=== PATIENT | male | born 1970 | race Caucasian/White ===

== ENCOUNTER 2017-06-27 15:53 | Observation (INO) | payer BC, OTHER ==
--- NOTE | 2017-06-27 16:29 | XR ---
EXAMINATION TYPE: XR ankle complete LT DATE OF EXAM: 06/27/2017 CLINICAL HISTORY: Left ankle pain after fall TECHNIQUE: Frontal, lateral and oblique images of the left ankle are obtained. COMPARISON: None. FINDINGS: There is an obliquely oriented mildly displaced fracture of the distal fibula with the dist al fracture fragment displaced approximately 5 mm laterally and minimally posteriorly. There is overl taras soft tissue swelling. No additional fracture is identified. Soft tissue swelling is also seen me dial lead. There is subluxation without leonarda dislocation of the ankle joint with medial joint space widening of 1.5 cm and inferred soft tissue injury. Moderate Achilles enthesophyte is also incidental ly noted. IMPRESSION: 1. Obliquely oriented distal fibular fracture, minimally displaced posterior laterally. 2. Medial ankle subluxation of 1.5 cm with overlying soft tissue swelling and inferred ligamentous in jury.
[2017-06-27] MEDS ORDERED: MIDAZOLAM 2 MG/2 ML VIAL IV ONE (16:33)
[2017-06-27] MEDS ORDERED: fentaNYL (PF) 50 MCG/ML 2 ML AMP IVP ONE (16:45)
--- NOTE | 2017-06-27 17:36 | XR ---
EXAMINATION TYPE: XR ankle complete LT DATE OF EXAM: 06/27/2017 COMPARISON: Today HISTORY: Post reduction TECHNIQUE: 3 views. FINDINGS: There is oblique fracture of the distal fibula with up to 5 mm displacement of the fragments. There i s widening of the ankle mortise. There is lateral subluxation of the talus. There is no dislocation. Conclusion: Displaced distal fibular fracture without significant change in position compared to exam one hour ago. Persistent lateral talus subluxation.
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
[2017-06-27] MEDS ORDERED: ONDANSETRON 4 MG/2 ML VIAL IVP PRN (18:43)
[2017-06-27] MEDS ORDERED: NALOXONE 0.4 MG/ML 1 ML VIAL IV PRN (18:43)
[2017-06-27] MEDS ORDERED: MORPHINE SULFATE 2 MG/ML SYRINGE IV PRN (18:43)
[2017-06-27 19:40] LABS: Basophils # (A) 0.1 k/uL (0-0.2); Basophils % (A) 0 %; Eosinophils # (A) 0.4 k/uL (0-0.7); Eosinophils % (A) 2 %; HCT 46.9 % (39.0-53.0); HGB 15.4 gm/dL (13.0-17.5); Lymphocytes # (A) 1.1 k/uL (1.0-4.8); Lymphocytes % (A) 6 %; MCH 29.7 pg (25.0-35.0); MCHC 32.9 g/dL (31.0-37.0); MCV 90.2 fL (80.0-100.0); Mean Platelet Volume 8.9; Monocytes # (A) 0.9 k/uL (0-1.0); Monocytes % (A) 5 %; Neutrophils # (A) 16.5 k/uL (1.3-7.7); Neutrophils % (A) 86 %; RDW 14.5 % (11.5-15.5)
[2017-06-27 19:50] LABS: Platelet Count 92 k/uL (150-450)
[2017-06-27 19:51] LABS: Anion Gap 8 mmol/L; Blood Urea Nitrogen 15 mg/dL (9-20); Calcium 8.8 mg/dL (8.4-10.2); Carbon Dioxide 29 mmol/L (22-30); Chloride 101 mmol/L (98-107); Glucose 118 mg/dL (74-99); Potassium 4.2 mmol/L (3.5-5.1); Sodium 138 mmol/L (137-145)
[2017-06-27] MEDS: HYDROmorphone 0.5 MG/0.5 ML SYRINGE IVP PRN (22:47)
[2017-06-28 06:48] LABS: Basophils # (A) 0.1 k/uL (0-0.2); Basophils % (A) 1 %; Eosinophils # (A) 0.5 k/uL (0-0.7); Eosinophils % (A) 4 %; HCT 42.7 % (39.0-53.0); HGB 13.8 gm/dL (13.0-17.5); Lymphocytes # (A) 1.3 k/uL (1.0-4.8); Lymphocytes % (A) 11 %; MCH 29.9 pg (25.0-35.0); MCHC 32.2 g/dL (31.0-37.0); MCV 92.9 fL (80.0-100.0); Mean Platelet Volume 8.3; Monocytes # (A) 0.8 k/uL (0-1.0); Monocytes % (A) 7 %; Neutrophils # (A) 9.4 k/uL (1.3-7.7); Neutrophils % (A) 76 %; RDW 14.6 % (11.5-15.5); WBC 12.3 k/uL (3.8-10.6)
[2017-06-28 06:54] LABS: Anion Gap 9 mmol/L; Blood Urea Nitrogen 14 mg/dL (9-20); Calcium 8.6 mg/dL (8.4-10.2); Carbon Dioxide 29 mmol/L (22-30); Chloride 101 mmol/L (98-107); Glucose 113 mg/dL (74-99); Potassium 4.5 mmol/L (3.5-5.1); Sodium 139 mmol/L (137-145)
[2017-06-28 06:56] LABS: Platelet Count 70 k/uL (150-450)
[2017-06-28] MEDS: HYDROmorphone 0.5 MG/0.5 ML SYRINGE IVP PRN (07:38)
[2017-06-28] MEDS ORDERED: LACTATED RINGERS 1,000 ML IV ONE (09:51)
[2017-06-28] MEDS ORDERED: DEXAMETHASONE SOD PHOSPHATE 10 MG/ML 1 ML VIAL IV ONE (10:04)
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
[2017-06-28] MEDS ORDERED: MIDAZOLAM 2 MG/2 ML VIAL ONE (10:30)
[2017-06-28] MEDS ORDERED: fentaNYL (PF) 50 MCG/ML 2 ML AMP ONE (10:30)
[2017-06-28] MEDS ORDERED: PROPOFOL 10 MG/ML 20 ML VIAL IV ONE (10:30)
[2017-06-28] MEDS ORDERED: SODIUM CHLORIDE 0.9% 100 ML with ceFAZolin 2,000 MG IV ONE ×2 (10:45)
[2017-06-28] MEDS ORDERED: HYDROcodone/APAP 5-325MG 1 EACH TAB PO PRN (11:34)
[2017-06-28] MEDS ORDERED: HYDROmorphone 0.5 MG/0.5 ML SYRINGE IVP PRN (11:34)
[2017-06-28] MEDS ORDERED: HYDROmorphone 2 MG/ML 1 ML SYRINGE IVP PRN (11:34)
--- NOTE | 2017-06-28 11:39 | P.OP ---
Date of Procedure: 06/28/17 Preoperative Diagnosis: Displaced left ankle lateral malleolar fracture Postoperative Diagnosis: same Procedure(s) Performed: Open reduction and internal fixation left ankle lateral malleolus fracture Implants: Rayne 6-hole one third semitubular plate with 6 appropriate length screws Anesthesia: spinal Surgeon: Andreas Kirk [employer] Dispatcher #1: Alen Robins Estimated Blood Loss (ml): 25 Pathology: none sent Condition: stable Disposition: PACU Indications for Procedure: 46-year-old patient seen with a displaced left ankle lateral malleolar fracture. I recommended open reduction and internal fixation. I reviewed the procedure, risks, complications and recovery. Patient was agreeable and consent was obtained. Operative Findings: see description of procedure Description of Procedure: The patient was taken to the operative suite. The patient underwent a spinal anesthetic by the department of anesthesia. The patient received preoperative IV antibiotics. A well-padded tourniquet was placed proximal left lower extremity. The left lower extremity was now prepped and draped in the normal sterile orthopedic fashion. The tourniquet was insufflated to 350. I now made an incision over the lateral malleolus sharply through skin. Blunt dissection was taken down to the fracture site which was easily identified. I used a periosteal elevator to expose the lateral aspect of the lateral malleolus. I reduced the displaced fracture and secured it with a bone clamp. The C-arm was brought in confirming anatomic reduction and bahai of the mortise. I chose a 6-hole semitubular plate and contoured it appropriately. It was secured to the lateral malleolus. Appropriate drill holes were made through the plate and 6 screws were introduced having good bite and purchase. The bone clamp was removed. We had a good anatomic reduction of the fracture and good fixation. The C-arm was brought in confirming alignment and placement of our fixation. It also confirmed bahai of the mortise. Spot films were obtained to document this. The wound was irrigated. The subcutaneous soft tissues were approximated with 2-0 Vicryl. The skin was approximated with skin yvette. Sterile dressings were applied followed by loose web roll. The tourniquet was released with immediate capillary refill noted of the entire extremity. We now placed the extremity in a modified bulky Guzman splint with ankle in neutral position. The patient was awakened, transferred to a bed and recovery in stable condition. Malachi ROCHA assisted with the procedure.
--- NOTE | 2017-06-28 13:46 | XR ---
Limited left ankle HISTORY: Fracture 3 intraoperative views of the left ankle document the procedure
--- NOTE | 2017-06-28 13:50 | FL ---
Fluoroscopy HISTORY: Open reduction internal fixation left ankle 5 seconds fluoroscopy time supplied to the referring clinician. 3 intraoperative C-arm images docume nt the procedure. See dictated report from orthopedic surgery.
[2017-06-28] MEDS: HYDROcodone/APAP 5-325MG 1 EACH TAB PO PRN ×2 (16:17→21:16)
[2017-06-28 18:14] LABS: Basophils % (A) 0 %; Eosinophils # (A) 0.2 k/uL (0-0.7); Eosinophils % (A) 1 %; HCT 46.7 % (39.0-53.0); HGB 15.4 gm/dL (13.0-17.5); Lymphocytes # (A) 0.4 k/uL (1.0-4.8); Lymphocytes % (A) 3 %; MCH 29.7 pg (25.0-35.0); MCHC 32.9 g/dL (31.0-37.0); MCV 90.4 fL (80.0-100.0); Mean Platelet Volume 8.7; Monocytes # (A) 0.4 k/uL (0-1.0); Monocytes % (A) 3 %; Neutrophils # (A) 13.2 k/uL (1.3-7.7); Neutrophils % (A) 93 %; RBC 5.17 m/uL (4.30-5.90); WBC 14.3 k/uL (3.8-10.6)
[2017-06-28 18:15] LABS: Platelet Count 89 k/uL (150-450)
[2017-06-28] MEDS: ceFAZolin IN SWFI 2 GM/20 ML SYRINGE IVP SCH (18:29)
[2017-06-29] MEDS: ceFAZolin IN SWFI 2 GM/20 ML SYRINGE IVP SCH (00:16)
[2017-06-29] MEDS: HYDROcodone/APAP 5-325MG 1 EACH TAB PO PRN ×2 (04:35→11:18)
[2017-06-29 07:18] VITALS: BP 125/69; PULSE 74; RESP 16; TEMP 97.4
[2017-06-29] MEDS ORDERED: ENOXAPARIN 30 MG/0.3 ML SYRINGE SQ SCH (09:00)
--- NOTE | 2017-06-29 10:01 | P.PN ---
Subjective Progress Note Date: 06/29/17 Principal diagnosis: status post ORIF left distal fibular fracture patient is seen today resting in his hospital bed, he appears comfortable. His pain is controlled at this time. He is urinating with no difficulty. He denies any headaches, lightheadedness, chest pain or shortness of breath. Objective - Vital Signs Vital signs: Vital Signs Temp 97.4 F L 06/29/17 07:18 Pulse 74 06/29/17 07:18 Resp 16 06/29/17 07:18 BP 125/69 06/29/17 07:18 Pulse Ox 96 06/29/17 07:18 Intake & Output 06/28/17 06/29/17 06/29/17 18:59 06:59 18:59 Intake Total 700 240 Output Total 25 225 Balance 675 -225 240 Intake: IV 700 Oral 240 Output: Urine 225 Estimated Blood Loss 25 Other: Voiding Method Toilet Urinal # Voids 1 - Exam left lower extremity: Postop splint is in good position, clean and dry. He is able to wiggle the toes. There is no significant ecchymosis or bruising noted in the toes. His sensation to light touch both proximal and distal to the splinter intact. capillary refill less than 2 seconds. - Labs CBC & Chem 7: 06/28/17 18:03 06/28/17 06:01 Labs: Abnormal Lab Results - Last 24 Hours (Table) 06/28/17 Range/Units 18:03 WBC 14.3 H (3.8-10.6) k/uL Plt Count 89 L (150-450) k/uL Neutrophils # 13.2 H (1.3-7.7) k/uL Lymphocytes # 0.4 L (1.0-4.8) k/uL Assessment and Plan Plan: assessment: 1. Postop day #1 status post open reduction internal fixation left distal fibular fracture Plan: 1. Pain control, we'll discharge home on oral medication 2. GI and DVT prophylaxis, aspirin 325 mg once daily 3. Nonweightbearing left lower extremity, instructions of the splint were discussed 4. Patient is scheduled for follow-up with his medical doctor next week 5. Icing and elevating techniques were discussed 6. Discharge planning: Patient is stable for discharge home today Time with Patient: Less than 30
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
== END 2017-06-29 11:35 | disposition home or self-care (01) ==
LOC: EC 15:53 → 3SUR 18:43 → INTOOBSV 18:43
PROVIDERS: ADMIT Orthopaedic Surgery; ATTEND Orthopaedic Surgery
DX: S82.62XA Displaced fracture of lateral malleolus of left fibula, initial encounter for closed fracture (principal); Y35.811A Legal intervention involving manhandling, law enforcement official injured, initial encounter; Y99.0 Civilian activity done for income or pay; D69.3 Immune thrombocytopenic purpura
CPT/HCPCS: 27788 ×2; 99285 ×2; 99152 ×2; 99153 ×2; 27792; 36415; 93005; 80048 ×2; 85025 ×2; 73600; 73610; G0378 ×3; C1713; J2250 ×2; J1100; J0690 ×3; J2405; J3010 ×2; J2704; J1170 ×2

== ENCOUNTER → 2018-10-12 | Outpatient (CLI) | payer OTHER ==
[2018-10-12 10:11] LABS: Potassium 4.5 mmol/L (3.5-5.1)
[2018-10-12 10:59] LABS: Basophils # (A) 0.1 k/uL (0-0.2); Basophils % (A) 1 %; Eosinophils # (A) 1.3 k/uL (0-0.7); Eosinophils % (A) 18 %; HCT 48.3 % (39.0-53.0); Lymphocytes # (A) 1.3 k/uL (1.0-4.8); Lymphocytes % (A) 17 %; MCH 29.3 pg (25.0-35.0); MCHC 33.2 g/dL (31.0-37.0); MCV 88.2 fL (80.0-100.0); Mean Platelet Volume 9.2; Monocytes # (A) 0.5 k/uL (0-1.0); Monocytes % (A) 7 %; Neutrophils # (A) 3.9 k/uL (1.3-7.7); Neutrophils % (A) 54 %; RBC 5.48 m/uL (4.30-5.90); RDW 14.7 % (11.5-15.5); WBC 7.2 k/uL (3.8-10.6)
[2018-10-12 12:55] LABS: Platelet Count 60 k/uL (150-450)
== END | disposition home or self-care (01) ==
LOC: LABPAT 08:56
PROVIDERS: ATTEND Orthopaedic Surgery
DX: Z01.812 Encounter for preprocedural laboratory examination (principal); T84.89XD Other specified complication of internal orthopedic prosthetic devices, implants and grafts, subsequent encounter
CPT/HCPCS: 36415; 80051; 85025

== ENCOUNTER 2018-11-08 11:25 | Day surgery (SDC) | payer BC, OTHER ==
[2018-11-06 10:39] VITALS: BMI 26.4
--- NOTE | 2018-11-07 16:20 | HP ---
HISTORY AND PHYSICAL DATE OF SURGERY: 11/08/2018 Horace Bella is a 48-year-old patient seen with irritating hardware, left ankle. We discussed options. He elected to proceed with removal of his irritating hardware. Consent was obtained. PAST MEDICAL HISTORY: Noncontributory. PAST SURGICAL HISTORY: Open reduction internal fixation, left ankle fracture. DAILY MEDICATIONS: Ibuprofen as needed. ALLERGIES: NONE. SOCIAL HISTORY: Denies current tobacco use. PHYSICAL EVALUATION OF THE LEFT ANKLE: His previous incision is well healed. He has full range of motion. He does have tenderness to palpation along the area of the hardware, which is somewhat prominent. There is no skin breakdown. Distal neurovascular exam is intact. RADIOGRAPHS: Radiographs of the left ankle revealed a well-healed lateral malleolar fracture with stable-appearing hardware. IMPRESSION: Irritated internal fixation, left ankle. PLAN: Removal of irritating internal hardware, left ankle. MMODL / IJN: [id number] /
[~2018-11-08 11:25] MED LIST: DEXAMETHASONE SOD PHOSPHATE 10 MG/ML 1 ML VIAL IV ONE; HYDROmorphone 0.5 MG/0.5 ML SYRINGE IVP PRN; LACTATED RINGERS 1,000 ML IV SCH; LIDOCAINE 1% 20 ML VIAL (10MG/ML) FOR IV START INTRADERMA PRN; MIDAZOLAM 2 MG/2 ML VIAL IV PRN; ONDANSETRON 4 MG/2 ML VIAL IVP ONE; SCOPOLAMINE 1.5MG/72HR PATCH TRANSDERM ONE; ceFAZolin IN SWFI 2 GM/20 ML SYRINGE IVP ONE
[2018-11-08] MEDS ORDERED: MIDAZOLAM 2 MG/2 ML VIAL ONE (12:39)
[2018-11-08] MEDS ORDERED: PROPOFOL 10 MG/ML 20 ML VIAL IV ONE (12:39)
[2018-11-08] MEDS ORDERED: fentaNYL (PF) 50 MCG/ML 2 ML AMP ONE (12:39)
[2018-11-08] MEDS ORDERED: LIDOCAINE 1% INJ 10MG/ML (20 ML MDV) ONE (12:39)
[2018-11-08] MEDS ORDERED: BUPIVACAINE (PF) 0.5% 30 ML VIAL SQ ONE (12:51)
[2018-11-08] MEDS ORDERED: ceFAZolin 1,000 MG in SODIUM CHLORIDE 0.9% 1,000 ML IRRIGATION ONE (13:01)
--- NOTE | 2018-11-08 13:25 | P.OP ---
Date of Procedure: 11/08/18 Preoperative Diagnosis: Irritating internal fixation left anklet Postoperative Diagnosis: Same Procedure(s) Performed: Removal irritating hardware left ankle Anesthesia: STEW, local Surgeon: Andreas Kirk Emergency Department #1: Alen Robins Estimated Blood Loss (ml): 3 Pathology: none sent Condition: stable Disposition: PACU Indications for Procedure: 48-year-old patient seen with irritating hardware left ankle. After options regarding treatment were discussed, he elected to proceed with removal of the irritating hardware. Operative Findings: see description of procedure Description of Procedure: The patient was taken to the operative suite. The patient underwent a general anesthetic by the department anesthesia. The patient received preoperative IV antibiotics. A well-padded tourniquet was placed proximal left thigh. The left lower extremity was prepped and draped in the normal sterile orthopedic fashion. The extremity was elevated and tourniquet insufflated to 300. I made an inci tejal with previous cicatrix sharply through skin. I dissected down to the plate and screws. They were exposed. While cristo branch held retractors I removed all 6 screws difficulty. The plate was now removed without difficulty. The fracture was well-healed. The wound was irrigated with antibiotic solution. The subcu soft tissues were repaired with 2-0 Vicryl. The skin was approximated with skin yvette. The incision area was infiltrated with 10 mL half percent plain Marcaine. Sterile dressings were applied. The tourniquet was released with good immediate capillary refill the entire foot noted. A sterile Shaan bandage was applied. The patient was awakened having entire procedure well. Malachi ROCHA assisted with the procedure.
[2018-11-08 13:32] VITALS: TEMP 97.3
[2018-11-08 13:40] VITALS: RESP 16
[2018-11-08 14:23] VITALS: BP 128/81; PULSE 72
== END 2018-11-08 14:40 | disposition home or self-care (01) ==
LOC: OR 11:25
PROVIDERS: ATTEND Orthopaedic Surgery
DX: T84.84XA Pain due to internal orthopedic prosthetic devices, implants and grafts, initial encounter (principal); Y79.3 Surgical instruments, materials and orthopedic devices (including sutures) associated with adverse incidents; Z85.828 Personal history of other malignant neoplasm of skin
CPT/HCPCS: 20680; J2250; J1100; J2405; J0690 ×2; J2001; J3010; J2704

== ENCOUNTER → 2019-04-18 | Day surgery (SDC) | payer BC ==
[~2019-04-18] MED LIST changes: -DEXAMETHASONE SOD PHOSPHATE 10 MG/ML 1 ML VIAL IV ONE; +LIDOCAINE 1% 20 ML VIAL (10MG/ML) FOR IV START INTRADERMA ONE; -LIDOCAINE 1% 20 ML VIAL (10MG/ML) FOR IV START INTRADERMA PRN; -MIDAZOLAM 2 MG/2 ML VIAL IV PRN; -ONDANSETRON 4 MG/2 ML VIAL IVP ONE; +ONDANSETRON 4 MG/2 ML VIAL IVP PRN; +PROPOFOL 10 MG/ML 20 ML VIAL IV ONE; -SCOPOLAMINE 1.5MG/72HR PATCH TRANSDERM ONE; -ceFAZolin IN SWFI 2 GM/20 ML SYRINGE IVP ONE
[2019-04-18 10:23] VITALS: TEMP 98
--- NOTE | 2019-04-18 11:12 | P.OP ---
Date of Procedure: 04/18/19 Preoperative Diagnosis: Screening colonoscopy Postoperative Diagnosis: Sigmoid diverticuli Sigmoid polyp Procedure(s) Performed: Colonoscopy with snare polypectomy Anesthesia: MAC Surgeon: Jose Ramon Aggarwal Estimated Blood Loss (ml): 0 Disposition: same day Description of Procedure: Patient is brought operative suite placed in left lateral decubitus position underwent sedation per department of anesthesia timeout performed correct patient correct procedure correct site was verified rectal exam was performed no gross abnormalities were noted scope was passed from the rectum to the cecum with ease. It was then slowly withdrawn being sure to visualize all white of the colon on the way out. There was a small sigmoid colon polyp removed via hot snare polypectomy and sent to pathology. There were sigmoid diverticuli noted as well. These were small and scattered. The scope was then withdrawn to the rectum retroflexed in the rectum no abnormalities are noted scope was withdrawn tissue tolerated procedure well no apparent complications Patient will need repeat colonoscopy in 5 years
[2019-04-18 11:39] VITALS: BP 120/72; PULSE 62; RESP 16
== END | disposition home or self-care (01) ==
LOC: ORWHC2ENDO 09:54
PROVIDERS: ATTEND Student in an Organized Health Care Education/Training Program
DX: Z12.11 Encounter for screening for malignant neoplasm of colon (principal); K63.9 Disease of intestine, unspecified; D69.6 Thrombocytopenia, unspecified; K57.30 Diverticulosis of large intestine without perforation or abscess without bleeding; C44.319 Basal cell carcinoma of skin of other parts of face; Z86.2 Personal history of diseases of the blood and blood-forming organs and certain disorders involving the immune mechanism
CPT/HCPCS: 88305; 45385; J2704

== ENCOUNTER → 2022-12-07 | Outpatient (CLI) | payer BC ==
--- NOTE | 2022-12-07 20:53 | MR ---
EXAMINATION TYPE: MR knee LT wo con DATE OF EXAM: 12/07/2022 COMPARISON: None HISTORY: No prior MR, left knee xrays on PACS, left knee pain anterior and subpateller, for about 3 y ears following and ankle fracture with surgical repair, no recent trauma, no surgery, history of skin CA TECHNIQUE: Multiplanar, multisequence imaging of the left knee is performed without IV contrast. FINDINGS: MEDIAL MENISCUS: Anterior and posterior horns are intact without tear. Degeneration posterior horn medial meniscus. LATERAL MENISCUS: Anterior and posterior horns are intact without tear. CRUCIATE LIGAMENTS: There is near complete rupture of the ACL with a couple fibers felt to be intact. No surrounding edema and subsequently injury may not be acute in nature. The PCL is intact. COLLATERAL LIGAMENTS: The medial collateral ligament and lateral collateral ligament complex are inta ct and unremarkable. EXTENSOR MECHANISM: Visualized quadriceps and patellar tendons are intact. EFFUSION: Small subpatellar joint effusion. POPLITEAL CYST: No popliteal/treviño cyst. TRICOMPARTMENT SPACES: Mild degenerative joint space narrowing medial tibiofemoral joint space. CARTILAGE: Intact BONE MARROW SIGNAL: No focal abnormal marrow signal is appreciated. OTHER: No additional significant abnormality is appreciated. IMPRESSION: 1. Near complete rupture of the ACL with a couple fibers remaining intact. The lack of surrounding e leyla suggests nonacute injury. Correlate clinically. 2. Small subpatellar joint effusion. 3. Changes of osteoarthritis.
== END | disposition home or self-care (01) ==
LOC: RADMRIMAIN 18:46
PROVIDERS: ATTEND Orthopaedic Surgery
DX: M17.12 Unilateral primary osteoarthritis, left knee (principal); M25.462 Effusion, left knee

== ENCOUNTER → 2023-02-20 | Outpatient (CLI) | payer BC ==
[2023-02-20 11:09] LABS: Anion Gap 8.1 mmol/L (4.00-12.00); Carbon Dioxide 28.9 mmol/L (21.6-31.8); Potassium 4.1 mmol/L (3.5-5.5)
[2023-02-20 11:28] LABS: Basophils # (A) 0.08 X 10*3/uL (0.00-0.10); Eosinophils # (A) 1.03 X 10*3/uL (0.04-0.35); Eosinophils % (A) 12.3 %; HCT 47.4 % (39.6-50.0); HGB 16.3 d/dL (13.0-17.0); Immature Platelet Fraction 12.1 % (1.1-6.1); Lymphocytes # (A) 1.85 X 10*3/uL (0.90-5.00); Lymphocytes % (A) 22.1 %; MCH 30.9 pg (27.0-32.0); MCHC 34.4 d/dL (32.0-37.0); MCV 89.9 FL (80.0-97.0); Mean Platelet Volume 12.1 FL (9.5-12.2); Monocytes # (A) 0.87 X 10*3/uL (0.20-1.00); Monocytes % (A) 10.4 %; NRBC Per 100 WBC 0 X 10*3/uL (0.00-0.01); Neutrophils # (A) 4.51 X 10*3/uL (1.80-7.70); Platelet Count 62 X 10*3/uL (140-440); RBC 5.27 X 10*6/uL (4.40-5.60); RBC Morphology Normal (Normal); RDW 13.1 % (11.5-14.5); WBC 8.36 X 10*3/uL (4.50-10.00)
== END | disposition home or self-care (01) ==
LOC: LABPAT 07:55
PROVIDERS: ATTEND Orthopaedic Surgery
DX: Z01.812 Encounter for preprocedural laboratory examination (principal); M23.92 Unspecified internal derangement of left knee; R00.1 Bradycardia, unspecified
CPT/HCPCS: 80051; 85025; 93005

== ENCOUNTER 2024-03-08 07:02 | Day surgery (SDC) | payer BC ==
[2024-03-06 16:30] VITALS: BMI 28.3
[~2024-03-08 07:02] MED LIST changes: -HYDROmorphone 0.5 MG/0.5 ML SYRINGE IVP PRN; -LACTATED RINGERS 1,000 ML IV SCH; +LIDOCAINE 1% (10MG/ML) FOR IV START INTRADERMA PRN; -LIDOCAINE 1% 20 ML VIAL (10MG/ML) FOR IV START INTRADERMA ONE; -ONDANSETRON 4 MG/2 ML VIAL IVP PRN; -PROPOFOL 10 MG/ML 20 ML VIAL IV ONE
[2024-03-08] MEDS: IV FLUID CONTINUATION 1,000 ML IV ONE (07:41)
[2024-03-08] MEDS: LACTATED RINGERS 1,000 ML IV SCH (07:41)
[2024-03-08 07:52] VITALS: RESP 16; TEMP 97.5
[2024-03-08] MEDS ORDERED: LIDOCAINE 1% INJ 10MG/ML (20 ML MDV) ONE (08:15)
[2024-03-08] MEDS ORDERED: PROPOFOL 10 MG/ML 20 ML VIAL IV ONE (08:15)
[2024-03-08] MEDS ORDERED: MIDAZOLAM 2 MG/2 ML VIAL ONE (08:15)
[2024-03-08] MEDS ORDERED: fentaNYL (PF) 50 MCG/ML 2 ML AMP ONE (08:15)
--- NOTE | 2024-03-08 08:37 | P.PCN ---
Date of Procedure: 03/08/24 Procedure(s) Performed: Brief history: Patient is a pleasant 53-year-old white male scheduled for an elective upper endoscopy as well as colonoscopy as a part of evaluation of vitamin B12 deficiency and rule out pernicious anemia. He denies any GI symptoms. He also has prior history of colon polyps Procedure performed: Esophagogastroduodenoscopy with biopsy Colonoscopy Preoperative diagnosis: Vitamin B12 deficiency rule out pernicious anemia History of colon polyps Anesthesia: MAC Procedure: After informed consent was obtained from the patient was brought into the endoscopy unit and IV sedation was administered by anesthesia under continuous monitoring. Initially upper endoscopy was done. The Olympus GF 160 video endoscope was inserted inserted into the mouth and esophagus intubated without any difficulty and was gradually advanced into the stomach and duodenum and carefully examined. The bulb and second part of the duodenum appeared normal. The scope was then withdrawn into the stomach adequately insufflated with air and upon careful examination the antrum and body, cardia and fundus appeared normal. The scope was then withdrawn into the esophagus. The GE junction was located at 40 cm to the incisors. It appeared regular with no erythema erosions or ulcerations. Rest of the esophagus appeared normal. Patient tolerated the procedure well. At this time the patient continued to remain sedation. Initial digital rectal examination was normal. Olympus CF 160 video colonoscope was then inserted into the rectum and gradually advanced to the cecum without any difficulty. Careful examination was performed as the scope was gradually being withdrawn. The prep was excellent. The cecum, ascending colon, transverse colon, descending colon, sigmoid colon and rectum appeared normal. Retroflexion was performed in the rectum and no lesions were noted. Patient tolerated the procedure well. Impression: 1. Upper endoscopy revealed mild antral gastritis 2. Colonoscopy revealed scattered sigmoid diverticulosis but no evidence of colorectal neoplasia Recommendations: Findings of this examination were discussed with the patient as well as his family. He was advised to follow-up with the biopsy results. Recommended repeat screening colonoscopy in 10 years.
[2024-03-08 09:01] VITALS: BP 118/75; PULSE 82
== END 2024-03-08 09:12 | disposition home or self-care (01) ==
LOC: ORWHC2ENDO 07:02
PROVIDERS: ATTEND Internal Medicine Gastroenterology
DX: K29.50 Unspecified chronic gastritis without bleeding (principal); K31.9 Disease of stomach and duodenum, unspecified; E53.8 Deficiency of other specified B group vitamins; Z12.11 Encounter for screening for malignant neoplasm of colon; K57.30 Diverticulosis of large intestine without perforation or abscess without bleeding; Z86.010 Personal history of colon polyps
CPT/HCPCS: 43239; 45378; 88305